=== PATIENT | male | born 1995 | race Caucasian/White ===

== ENCOUNTER 2017-06-26 17:44 | Emergency (ER) | payer BC, OTHER ==
[2017-06-26 17:57] VITALS: BP 101/81
[2017-06-26] MEDS ORDERED: MAG HYDROX/ALUMINUM HYD/SIMETH 30 ML UDC PO ONE (18:10)
[2017-06-26] MEDS ORDERED: LIDOCAINE HCL 20 ML UDC PO ONE (18:10)
[2017-06-26] MEDS ORDERED: SUCRALFATE 1 G/10 ML UDC PO ONE (18:17)
--- NOTE | 2017-06-26 18:44 | ERNOTE ---
Abdominal HPI - Narrative Date of Service: 06/26/17 - General Chief Complaint: Abdominal Pain Time Seen by Provider: 06/26/17 17:51 Source: patient Exam Limitations: no limitations - Immun/Allergies/Home Medications Immunizatons: IMMUNIZATION HX Immunizations Up to Date Yes History of Influenza Vaccine No Hx Pneumococcal Vaccination No Allergies/Adverse Reactions: Allergies No Known Allergies Allergy (Unverified 06/26/17 17:57) Home Medications: HOME MEDICATIONS NK [No Home Medication] 06/26/17 [Last Taken Unknown] - History of Present Illness Narrative: Patient presents to the ED for upper abdominal pain after eating s scorpion pepper. He was with friends and ate a scorpion pepper. He did this this afternoon. After he ate the pepper he developed upper abdominal pain and vomited once. No further vomiting but still feels nauseated. Burnign sensation in his epigastrium. No fever. No diarrhea. No blood in the vomit. Pain waxing and waning, now mild. Timing: constant, other - waxing and waning Quality: mild Activities at Onset: other - after eating pepper Modifying Factors - (Improves): Present: other - drank milk but did not help Modifying Factors - (Worsens): Present: other - nothing Associated Symptoms: Absent: chest pain, shortness of breath Prior Abdominal Problems: Present: none Prior Treatment: Absent: recently seen Review of Systems - Review of Systems Constitutional: Absent: fever Respiratory: Absent: shortness of breath Cardiology: Absent: chest pain Gastrointestinal/Abdominal: Present: See HPI Genitourinary: Absent: dysuria Neurological: Absent: weakness - Patient's Past Medical History Patient History - Medical: No pertinent hx Patient History - Cardiac/Respiratory: No pertinent hx Patient History - Cancer: No Hx of Cancer Patient History - Surgical Procedures: T & A Patient History - Other: None - Social History Living Situations: parents Abuse History: No History of abuse Psych History: No pertinent hx Smoking Status: Never smoker Have you smoked in the past 12 months: No Do you dip or chew tobacco: No Alcohol Use: occasionally Drug Use: none - Immunizations Immunizations Up to Date: Yes Hx Pneumococcal Vaccination: No History of Influenza Vaccine: No Physical Exam - Physical Exam General Appearance: Present: alert, no apparent distress Head Exam: Present: normal inspection, no evidence of injury Eye Exam: Normal inspection: bilateral, PERRL: bilateral Ears, Nose, Throat: Present: normal ENT inspection Neck: Present: normal inspection, nontender Respiratory: Present: no respiratory distress, normal breath sounds, no accessory muscle use, lungs clear Cardiovascular/Chest: Present: regular rate, rhythm, normal peripheral pulses Gastrointestinal/Abdominal: Present: normal bowel sounds, nondistended, soft, other - mild epigastric tenderness. no peritoneal signs, no guarding or rebound. Non-surgical exam Back Exam: Absent: CVA tenderness (R), CVA tenderness (L) Extremity Exam: Present: normal inspection Neurological Exam: Present: alert, normal mood/affect, no motor/sensory deficits Skin Exam: Present: normal color, warm/dry ED Progress - Vital Signs Patient's Vital Signs:: I have reviewed the patient's vital signs. Vital Signs: Vital Signs 06/26/17 17:52 Temperature 36.5 C Pulse Rate 65 Respiratory 16 Rate Blood Pressure 101/81 O2 Sat by Pulse 100 Oximetry - Progress/Reassessment Chief Complaint: Abdominal Pain Progress Note-Subjective: 06/26/17 18:41 GI cocktail essentially relieved his Sx. I discussed lab testing with the patient, he wishes to go home and return for testing if his Sx worsen. nothign at this timte would suggest peritonitis or other clear acute life threat. Departure Clinical Impression: Abdominal pain - Departure Disposition: Home self-care Condition: Stable Instructions: Abdominal Pain, Adult, [id number] Additional Instructions: Rest. Fluids. Follow-up with your primary doctor in 1-2 days for a re-check. Return here for addition testing if you develop recurrent pain, vomiting or if your condition worsens or changes in any way. Referrals: Stefano Manzanares MD [Primary Care Provider] -
== END 2017-06-26 18:45 | disposition home or self-care (01) ==
LOC: ER 17:44
DX: R10.10 Upper abdominal pain, unspecified (principal)